=== PATIENT | female | born 1935 | race Caucasian/White ===

== ENCOUNTER 2018-08-19 08:25 | Emergency (ER) | payer MEDICARE, OTHER | END 2018-08-19 11:06 | disposition home or self-care (01) | LOC: E/R 08:25 | DX: S29.001A Unspecified injury of muscle and tendon of front wall of thorax, initial encounter (principal); S09.8XXA Other specified injuries of head, initial encounter; I10 Essential (primary) hypertension; X58.XXXA Exposure to other specified factors, initial encounter; Y92.9 Unspecified place or not applicable | CPT/HCPCS: 70450; 71250; 99284-25 ==